=== PATIENT | female | born 1955 | race Two or more races ===

== ENCOUNTER 2023-11-22 06:08 | Day surgery (SDC) | payer OTHER ==
[2023-11-16 09:22] LABS: PH,URINE 5.5 (5.0-8.0); URINE APPEARANCE Clear; URINE BILIRRUBIN Negative (NEGATIVE); URINE BLOOD Negative; URINE COLOR Yellow; URINE GLUCOSE Negative (NEGATIVE); URINE LEUKOCYTE Negative; URINE NITRATE Negative; URINE PROTEIN Negative (NEGATIVE); URINE UROBILINOGEN 0.2 E.U./dl
[2023-11-16 09:25] LABS: URINE BACTERIA 80.6 uL (0.0-1933); URINE WBC 19.6 uL (0.0-23.2)
[2023-11-16 09:33] LABS: HEMATOCRIT 39.3 % (36.0-45.00); HEMOGLOBIN 13.3 g/dL (12.0-15.00); MEAN CELL VOLUME 90.8 fL (80.00-100.00); MEAN CORPUSCULAR HEMOGLOBIN 30.6 pg (27.00-32.0); MEAN CORPUSCULAR HGB CONC 33.7 g/dl (32.0-36.0); PLATELET COUNT 173 K/uL (150-450); RED BLOOD COUNT 4.33 M/uL (4.00-6.00); RED CELL DISTRIBUTION WIDTH 12.5 % (11.5-14.5)
[2023-11-16 09:59] LABS: INR 1.03; PARTIAL THROMBOPLASTIN TIME 29.5 SECONDS (22.0-34.0); PROTHROMBIN TIME 10.8 SECONDS (9.0-11.5)
[2023-11-16 10:13] LABS: ALBUMIN 4.2 gm/dL (3.4-5.0); BILIRUBIN TOTAL 0.73 mg/dL (0.3-1.2); CALCIUM 9.4 mg/dL (8.5-10.1); CREATININE SERUM 0.68 mg/dL (0.55-1.02); GFR 86.04; GLOBULINA 3.8 G/DL (2.4-3.5); POTASSIUM 4.96 mEq/L (3.5-5.1)
[2023-11-16 10:14] LABS: TSH 0.955 uIU/mL (0.358-3.74)
[~2023-11-22 06:08] MED LIST: ADULT LOW DOSE81 M1 PO; AMLODIPINE BESY10 MG PO; COZAAR50 MG PO; GLIPIZIDE XL5 MG PO; GLUMETZA500 MG PO; LIPITOR40 M1 PO; PLAVIX75 MG PO; [UNRECOGNIZED DRUG - OTHER]
[2023-11-22] MEDS ORDERED: CLINDAMYCIN PHOSPHATE 150 MG/ML (900mg) ONE (13:09)
[2023-11-22] MEDS ORDERED: POVIDONE-IODINE 118 ML BOTT TOP ONE (13:59)
[2023-11-22] MEDS ORDERED: ENALAPRILAT DIHYDRATE 1.25 MG/ML VIAL IV ONE ×3 (14:38→18:11)
[2023-11-22] MEDS ORDERED: NAPR500T14 PO (15:24)
[2023-11-22] MEDS ORDERED: MORGIDOX100 MG PO (15:24)
[2023-11-22] MEDS ORDERED: MORPHINE SULFATE 4 MG/ML VIAL IV PRN (15:30)
[2023-11-22] MEDS ORDERED: PROMETHAZINE HCL 50 MG/ML AMPUL IM ONE (15:30)
== END 2023-11-22 19:40 | disposition home or self-care (01) ==
LOC: CIR.AMB 06:08
PROVIDERS: ATTEND Obstetrics & Gynecology
DX: N85.02 Endometrial intraepithelial neoplasia [EIN] (principal); D25.0 Submucous leiomyoma of uterus; N95.0 Postmenopausal bleeding; Z88.6 Allergy status to analgesic agent; I10 Essential (primary) hypertension; E10.9 Type 1 diabetes mellitus without complications

== ENCOUNTER 2024-02-14 08:14 | Inpatient (IN) | payer OTHER ==
[~2024-02-14] VITALS: Ht 167.6 cm; Wt 64.4 kg
[~2024-02-14 08:14] MED LIST changes: +MORGIDOX100 MG PO; +NAPR500T14 PO
[2024-02-14 09:16] LABS: HEMATOCRIT 38.4 % (36.0-45.00); HEMOGLOBIN 13.5 g/dL (12.0-15.00); MEAN CELL VOLUME 88.7 fL (80.00-100.00); MEAN CORPUSCULAR HEMOGLOBIN 31.1 pg (27.00-32.0); MEAN CORPUSCULAR HGB CONC 35.1 g/dl (32.0-36.0); PLATELET COUNT 187 K/uL (150-450); RED BLOOD COUNT 4.33 M/uL (4.00-6.00); RED CELL DISTRIBUTION WIDTH 13.4 % (11.5-14.5)
[2024-02-14 09:30] LABS: PH,URINE 5.5 (5.0-8.0); URINE APPEARANCE Clear; URINE BILIRRUBIN Negative (NEGATIVE); URINE BLOOD Negative; URINE COLOR Yellow; URINE GLUCOSE Negative (NEGATIVE); URINE KETONE Negative (NEGATIVE); URINE LEUKOCYTE Small; URINE NITRATE Negative; URINE PROTEIN Negative (NEGATIVE); URINE UROBILINOGEN 0.2 E.U./dl
[2024-02-14 09:32] LABS: URINE BACTERIA 51.6 uL (0.0-1933); URINE EPITHELIAL CELLS 7.5 uL (0.0-38.8); URINE WBC 20.2 uL (0.0-23.2)
[2024-02-14 09:33] LABS: INR 1.01; PARTIAL THROMBOPLASTIN TIME 29.4 SECONDS (22.0-34.0)
[2024-02-14 09:51] LABS: URINE RBC 1.5 uL (0.0-20.8)
[2024-02-14 10:31] VITALS: BP 170/75; BP 190/78
[2024-02-14 10:44] LABS: ALBUMIN 4.3 gm/dL (3.4-5.0); BILIRUBIN TOTAL 0.7 mg/dL (0.3-1.2); CALCIUM 9.5 mg/dL (8.5-10.1); CREATININE SERUM 0.65 mg/dL (0.55-1.02); GFR 90.64; GLOBULINA 3.6 G/DL (2.4-3.5); POTASSIUM 4.78 mEq/L (3.5-5.1); TOTAL PROTEIN 7.9 gm/dL (6.4-8.2); TSH 1.62 uIU/mL (0.358-3.74)
[2024-02-21] MEDS ORDERED: CLINDAMYCIN PHOSPHATE 150 MG/ML (900mg) ONE (13:41)
[2024-02-21] MEDS ORDERED: AMLODIPINE BESYL5 MG (15:20)
[2024-02-21] MEDS ORDERED: LOSARTAN POTAS100 MG (15:20)
[2024-02-21] MEDS ORDERED: ATORVASTATIN CA20 MG (15:20)
[2024-02-21] MEDS ORDERED: POVIDONE-IODINE 118 ML BOTT TOP ONE ×2 (15:41→18:41)
[2024-02-21] MEDS ORDERED: SUGAMMADEX SODIUM 200 MG/2 ML VIAL IV ONE (20:22)
[2024-02-21] MEDS ORDERED: RINGERS SOLUTION,LACTATED 1,000 ML IV SCH (20:30)
[2024-02-21] MEDS ORDERED: MEPERIDINE HCL/PF 50 MG/ML VIAL IV SCH (20:31)
[2024-02-21] MEDS ORDERED: ENOXAPARIN SODIUM 30 MG/0.3 ML SYRINGE SUBCUTANEO SCH (20:31)
[2024-02-21] MEDS ORDERED: PROMETHAZINE HCL 50 MG/ML AMPUL IV SCH (20:32)
[2024-02-21] MEDS ORDERED: ENALAPRILAT DIHYDRATE 1.25 MG/ML VIAL IV ONE ×2 (21:28→22:24)
[2024-02-22 03:17] VITALS: BP 147/70
[2024-02-22 08:00] VITALS: BP 119/79
[2024-02-22] MEDS ORDERED: ACETAMINOPHEN WITH CODEINE 1 UDTAB TABLET PO ONE (08:45)
[2024-02-22] MEDS ORDERED: NAPR500T14 PO (08:58)
[2024-02-22] MEDS ORDERED: Tylenol #3 PO (08:58)
== END 2024-02-22 10:52 | disposition home or self-care (01) | DRG 743 ==
LOC: O/R 02-21 05:24 → SURH 02-21 08:45 → OB/GYN 02-21 19:55
PROVIDERS: ADMIT Obstetrics & Gynecology; ATTEND Obstetrics & Gynecology
PROC: 0UT7FZZ Resection of Bilateral Fallopian Tubes, Via Natural or Artificial Opening With Percutaneous Endoscopic Assistance (ICD-10-PCS; 2024-02-21)
PROC: 0UT2FZZ Resection of Bilateral Ovaries, Via Natural or Artificial Opening With Percutaneous Endoscopic Assistance (ICD-10-PCS; 2024-02-21)
PROC: 0JQC0ZZ Repair Pelvic Region Subcutaneous Tissue and Fascia, Open Approach (ICD-10-PCS; 2024-02-21)
PROC: 0USG4ZZ Reposition Vagina, Percutaneous Endoscopic Approach (ICD-10-PCS; 2024-02-21)
PROC: 0TJB8ZZ Inspection of Bladder, Via Natural or Artificial Opening Endoscopic (ICD-10-PCS; 2024-02-21)
PROC: 0UT9FZZ Resection of Uterus, Via Natural or Artificial Opening With Percutaneous Endoscopic Assistance (ICD-10-PCS; principal; 2024-02-21 09:45)
DX: D25.0 Submucous leiomyoma of uterus (principal); N84.1 Polyp of cervix uteri; N84.0 Polyp of corpus uteri; N95.0 Postmenopausal bleeding; Z20.822 Contact with and (suspected) exposure to COVID-19; N81.11 Cystocele, midline